=== PATIENT | female | born 2000 | race Caucasian/White ===

== ENCOUNTER 2021-11-29 18:52 | Emergency (ER) | payer SELFPAY ==
[2021-11-29 19:30] VITALS: BP 121/87; PULSE 81; RESP 19; TEMP 37.1; O2SAT 98; BMI 23.8
--- NOTE | 2021-11-29 20:00 | HMH.EDUTC ---
[facility] [place] Clinical Impression: Encounter for laboratory testing for COVID-19 virus Disposition: Home, Self-Care Condition on Discharge: Good Instructions: DI for COVID-19 (Suspected or Confirmed ), Preventing the Spread of Coronavirus Discharge Instructions Additional Instructions: Calculating Isolation Day 0 is your first day of symptoms or a positive viral test. Day 1 is the first full day after your symptoms developed or your test specimen was collected. If you have COVID-19 or have symptoms, isolate for at least 5 days. IF YOU Tested positive for COVID-19 or have symptoms, regardless of vaccination status Stay home for at least 5 days Stay home for 5 days and isolate from others in your home. Wear a well-fitting mask if you must be around others in your home. Do not travel. Ending isolation if you had symptoms End isolation after 5 full days if you are fever-free for 24 hours (without the use of fever-reducing medication) and your symptoms are improving. Ending isolation if you did NOT have symptoms End isolation after at least 5 full days after your positive test. If you got very sick from COVID-19 or have a weakened immune system You should isolate for at least 10 days. Consult your doctor before ending isolation. Take precautions until day 10 Wear a well-fitting mask Wear a well-fitting mask for 10 full days any time you are around others inside your home or in public. Do not go to places where you are unable to wear a mask. Do not travel Do not travel until a full 10 days after your symptoms started or the date your positive test was taken if you had no symptoms. Avoid being around people who are more likely to get very sick from COVID-19. You were tested for today for COVID19 your test result should be back in the next 24-48 hours, your results should be available on the [facility] portal for viewing CDC recommends Quarantine for Make sure to take your Vitamins Vit. C Vit D and Zinc if you can take them Referrals: Provider,Referral, [Primary Care Provider] - As needed Forms: Work/School Release Time of Disposition: 20:03 Medical Decision Making - Brian Inquiry Pt receiving controlled substance: No Brian was queried for this patient: No Vital Signs: 11/29/21 19:30 Temperature 98.7 F Temperature Source Oral Pulse Rate [Right Brachial] 81 Respiratory Rate 19 Blood Pressure [Right Arm] 121/87 Blood Pressure Mean [Right Arm] 98 Blood Pressure Source [Right Arm] Automatic Cuff Blood Pressure Position [Right Arm] Sitting 02 Sat by Pulse Oximetry 98 Oxygen Delivery Method Room Air Orders (Tests/Meds): ORDERS Category Date Time Status Covid-19 Nasal PCR ([facility]) Routine Lab 11/29/21 19:37 [place] [facility] [place] - General Stated complaint: covid test Time Seen by Provider: 11/29/21 20:00 Mode of Arrival: Ambulatory Source of Information: Patient Limitations: No Limitations Description of Symptoms (Recalled from Triage Doc. by RN): PATIENT C/O BODY ACHES AND NO TASTE/SMELL X 1 WEEK HEENT Symptoms (Recalled from RN notes): No Resp Symptoms (Recalled from RN notes): No Skin Symptoms (Recalled from RN notes): No MS Symptoms (Recalled from RN notes): No Functional Status (Recalled from RN notes): WNL - History of Present Illness Provider Complaint: Patient states she was around her last week and she was having flu like symptoms and loss her taste and smell concerned that she may have COVID and wanted to get tested - Related Data Allergies Allergy/AdvReac Type Severity Reaction Status Date / Time No Known Allergies Allergy Verified 11/29/21 19:47 - Worker's Comp Is this a Worker's Comp case?: No [facility] History - Hepatitis A Screen Attestation statement:: This patient has been screened for Hepatitis A risk factors. I have reviewed the patient's past medical history: Yes ROS Obtained: Yes All systems reviewed & no additional complaints, Yes Systems reviewed as appropria
[2021-11-29 20:04] VITALS: BP 121/87; PULSE 81; RESP 19; TEMP 37.1; O2SAT 98
== END 2021-11-29 20:09 | disposition home or self-care (01) ==
PROVIDERS: Emergency Provider Nurse Practitioner
DX: U07.1 COVID-19 (principal)
CPT/HCPCS: 99211; C9803; G0463; U0003; U0005

== ENCOUNTER 2023-02-14 13:34 | Emergency (ER) | payer SELFPAY ==
[2023-02-14 13:40] VITALS: BP 179/89; PULSE 114; RESP 20; TEMP 37.1; O2SAT 97; BMI 27.3
--- NOTE | 2023-02-14 13:51 | HMH.EDGENADL ---
Discharge Plan Disposition Patient Disposition: Home, Self-Care Prescriptions Prescriptions: New amoxicillin-pot clavulanate 875-125 mg tablet 1 tab PO BID 10 Days Qty: 20 0RF Referrals Follow up/Referrals: Provider,Referral, [Primary Care Provider] - See instructions Activity Restrictions/Add. Instructions Additional Instructions/Restrictions: Please follow-up with the message earliest convenience you may go to [facility] for student walk-in clinic or urgent care clinic. You may call [phone] for further information you may also follow-up with a dentist at . Return with significant worsening of your facial swelling fevers or other concerns Clinical Impressions Clinical Impression: Infected dental caries, Facial cellulitis Discharge ED Provider: Rick Smith General Adult HPI General Chief complaint: Dental/Oral Stated complaint: jaw swelling, sore throat Time Seen by Provider: 02/14/23 13:41 Mode of Arrival: Ambulatory Source of Information: Patient Limitations: No Limitations Description of Symptoms (Recalled from ER Triage Doc. by RN): pt to ed c/o right sided jaw sewlling and sore throat. pt states she believes she has an infected wisdom tooth. History of Present Illness HPI narrative: Patient is a 23-year-old female here with concerns of dental caries on the right mandibular molar region and facial swelling over the last few days. She states that she is known about this problem regarding her dental caries and her wisdom teeth in the past needing to be extracted but she is try to follow-up with dentist and they have been cost prohibitive. She states that it has significantly worsened over the last few days however she does not have any difficulty with opening her mouth tolerating secretions fevers or any other concerns. She has no antibiotic allergies or other medical problems. Related Data Previous Rx's Medication Instructions Recorded amoxicillin 875 mg-potassium 1 tab PO BID 10 days #20 tabs 02/14/23 clavulanate 125 mg tablet Allergies Allergy/AdvReac Type Severity Reaction Status Date / Time No Known Allergies Allergy Verified 11/29/21 19:47 [facility] Disclaimer: The information contained in this section may have been updated after the patient was seen, as this information can be updated by other users. Social History Smoking Status: Never smoker alcohol intake: never current occupational status: other Travel in the last 8 weeks: None ROS Obtained: Yes All systems reviewed & no additional complaints except as documented Physical Exam General General appearance: alert ENT ENT exam: Present other (Necrotic dental caries in the right mandibular molar with surrounding erythema of the gingiva no obvious abscess there is significant facial swelling in the angle of the mandible without any fluctuance no trismus) Respiratory Respiratory exam: Present normal lung sounds bilaterally; Absent respiratory distress Cardiovascular Cardiovascular exam: Present regular rate; Absent tachycardia Neurological Exam Neurological exam: Present alert and oriented X3 Medical Decision Making Brian Inquiry Pt receiving controlled substance: No Vital Signs: 02/14/23 13:40 Temperature 98.7 F Temperature Source Oral Pulse Rate [Right Radial] 114 H Respiratory Rate 20 Blood Pressure [Right Arm] 179/89 H Blood Pressure Mean [Right Arm] 119 02 Sat by Pulse Oximetry 97 Oxygen Delivery Method Room Air Orders (Tests/Meds): ED MEDICATIONS Generic Name Dose Route Start Last Admin Trade Name Freq PRN Reason Stop Dose Admin Amoxicillin/Clavulanate Potassium 2 each 02/14/23 13:46 Amoxicillin/Pot Clavulan 500mg Tablet PO 02/14/23 13:47 ONCE ONE Medical Decision Narrative: 23-year-old female with facial cellulitis that is mild secondary to odontogenic infection. She has chronic dental caries that are clearly infected that will eventually need to be
[2023-02-14 13:56] VITALS: BP 168/87; PULSE 102; RESP 20; TEMP 37.1; O2SAT 97
== END 2023-02-14 13:57 | disposition home or self-care (01) ==
PROVIDERS: Emergency Provider Student in an Organized Health Care Education/Training Program
DX: L03.211 Cellulitis of face (principal); J02.9 Acute pharyngitis, unspecified
CPT/HCPCS: 99283

== ENCOUNTER 2024-08-01 17:26 | Emergency (ER) | payer BC, SELFPAY ==
[2024-08-01 17:55] VITALS: BP 142/89; PULSE 89; RESP 19; TEMP 36.8; O2SAT 100; BMI 30.2
--- NOTE | 2024-08-01 18:06 | ED_ITS ---
Discharge Plan Disposition Patient Disposition: Home, Self-Care Condition: Good Prescriptions Prescriptions: New ferrous sulfate 325 mg (65 mg iron) tablet 325 mg PO DAILY 30 Days Qty: 30 5RF Referrals Follow up/Referrals: Provider,Referral, MD [Primary Care Provider] - See instructions Activity Restrictions/Add. Instructions Additional Instructions/Restrictions: Drink plenty of fluids. Take the iron (ferrous sulfate) as directed. If you have trouble with constipation while taking iron I recommend for you to take a stool softener [colace (docusate sodium)] with it. Follow up with your regular doctor. We are giving you a list of primary care physicians that are taking new patients. Please call one in the morning to get a follow up there with in the next 1 week to 10 days to have your blood counts rechecked and further treatment. GO TO THE ER FOR ANY WORSENING SYMPTOMS Clinical Impressions Clinical Impression: Anemia Instructions Patient Instructions: Iron, Anemia Print Language Print Language: Maltese Discharge ED Provider: Wilman Kaufman [facility] General Stated complaint: lightheaded,fast heart rate Mode of Arrival: Ambulatory Source of Information: Patient Limitations: No Limitations Time Seen by Provider: 08/01/24 18:06 Description of Symptoms (Recalled from Triage Doc. by RN): PATIENT C/O FEELING LIGHT-HEADED ON AND OFF OVER THE PAST FEW YEARS HEENT Symptoms (Recalled from RN notes): Yes Resp Symptoms (Recalled from RN notes): No Skin Symptoms (Recalled from RN notes): No MS Symptoms (Recalled from RN notes): No Functional Status (Recalled from RN notes): WNL History of Present Illness Provider Complaint: She states that for the few years she has had periods of time when she has felt light headed. She has had these symptoms frequently over the past 1 month or so. She has not had medical insurance until the past few weeks, so she came in today to be checked. She states that her light headedness is most severe when she first stands up. She denies any chest pain, shortness of breath and any other symptoms. In the past she had issues with anemia related to having heavy periods. She states that she still has very heavy periods. Related Data Previous Rx's ?Medication ?Instructions ?Recorded ferrous sulfate 325 mg (65 mg 325 mg PO DAILY 30 days #30 tabs 08/01/24 iron) tablet Allergies Allergy/AdvReac Type Severity Reaction Status Date / Time No Known Allergies Allergy Verified 11/29/21 19:47 Worker's Comp Is this a Worker's Comp case?: No [facility] Disclaimer: The information contained in this section may have been updated after the patient was seen, as this information can be updated by other users. Medical History (Updated 08/01/24 @ 19:19 by Wilman Kaufman APRN) History of anemia Social History (Updated 02/14/23 @ 13:54 by Rick Smith MD) Smoking Status: Never smoker alcohol intake: never current occupational status: other Travel in the last 8 weeks: None Have you lived/traveled outside [place] in past 30 days?: No Contact w/someone who lives/traveled outside [place] past 30 days?: No Exposure to someone with infectious disease in past 14 days?: No Do you have a fever (greater than 100.4 F or 38 C)?: No Have you tested positive for COVID-19: No Exposed to someone with COVID-19 in past 14 days?: No Do you have a sore throat?: No Do you have a cough?: No Do you have any weakness?: Yes Do you have any diarrhea?: No Are you experiencing any unusual bleeding?: No Do you have any muscle aches/pain?: No Do you have any abdominal pain?: No Are you experiencing loss of taste or smell?: No ROS Obtained: Yes All systems reviewed & no additional complaints except as documented Constitutional Constitutional: Denies chills and Denies fever(s) Eyes Eyes: Denies eye discharge ENT Ears, Nose, Mouth, and Throat: Denies dizziness, Denies otalgia and Denies sore throat Cardiovascular Cardiovascular: Denies chest pain Respiratory Respiratory: Denies shortness of breath, Denies chest congestion, Denies cough, Denies stridor and Denies wheezing Gastrointestinal Gastrointestingal: Denies nausea or vomiting Musculoskeletal Musculoskeletal: Reports system reviewed and no additional complaints, except as documented and Denies arthralgias Integumentary/Breasts Skin/Breast: Denies rash Neurologic Neurologic: Denies dizziness and Denies paresthesias Allergic/Immunologic Allergic/Immunologic: Denies wheezing Physical Exam General General appearance: alert and in no apparent distress Head Head exam: atraumatic, normocephalic and normal inspection Eye Eye exam: Present normal appearance, PERRL and EOMI ENT ENT exam: Present normal exam, normal oropharynx, mucous membranes moist, TM's normal bilaterally and normal external ear exam Neck Neck exam: Present normal inspection, full ROM and trachea midline; Absent meningismus or lymphadenopathy Chest Chest inspection: Present normal inspection and symmetric chest wall rise; Absent tenderness Respiratory Respiratory exam: Present normal lung sounds bilaterally; Absent respiratory distress Cardiovascular Cardiovascular exam: Present regular rate and normal rhythm; Absent JVD Abdominal Exam Abdominal exam: Present soft and normal bowel sounds; Absent distention, tenderness or guarding Extremities Exam Extremities exam: Present normal inspection, full ROM and normal capillary refill; Absent calf tenderness Back Exam Back exam: Present normal inspection; Absent tenderness Neurological Exam Neurological exam: Present alert and oriented X3 Psychiatric Psychiatric exam: Present normal affect and normal mood Skin Skin exam: Present warm, dry, intact and normal color Lymphatic Lymphatic Findings: no adenopathy Medical Decision Making Medical Records Medical records reviewed: No I reviewed the patient's medical records. Screening: Per USPSTF and CDC recommendations, given the prevalence of disease in our region, it is our hospital?s policy to screen for HIV and viral Hepatitis for all patients aged 18 and over and those with ongoing risk factors. Brian Inquiry Pt receiving controlled substance: No Vital Signs: 08/01/24 17:55 Temperature 98.2 F Temperature Source Oral Pulse Rate [Left Brachial] 89 Respiratory Rate 19 Blood Pressure [Left Arm] 142/89 H Blood Pressure Mean [Left Arm] 106 Blood Pressure Source [Left Arm] Automatic Cuff Blood Pressure Position [Left Arm] Sitting 02 Sat by Pulse Oximetry 100 Oxygen Delivery Method Room Air Lab Data 08/01/24 18:40 08/01/24 18:40 Medical Decision Narrative: She refused transfer to the er for further evaluation at this time.
--- NOTE | 2024-08-01 18:43 | ECG_ITS ---
APPROVED REPORT Exam: Resting ECG HR:74 bpm ECG Measurements Heart Rate 74 AXES AZ 132 P 31 QRSd 93 QRS 65 QT 346 T 59 QTc 374 Conclusion SINUS RHYTHM POSSIBLE RIGHT VENTRICULAR CONDUCTION DELAY [RSR (QR) IN V1/V2] BORDERLINE ECG Electronically signed by : DENISE MEDRANO, 08/03/2024 15:41:54
[2024-08-01 18:56] LABS: Basophils # 0.1 K/mm3 (0-0.2); Basophils % 1.1 % (0.1-2.0); Eosinophils # 0.1 K/mm3 (0.0-0.4); Eosinophils % 1.5 % (0.1-12.0); Hemoglobin 7.7 g/dL (12.2-16.2); Lymphocytes # 2.4 K/mm3 (0.7-4.5); Mean Corpuscular HGB Conc 28.5 g/dL (31.8-35.4); Mean Corpuscular Hemoglobin 20.4 pg (27.0-31.2); Mean Corpuscular Volume 71.4 fl (81-99); Mean Platelet Volume 9.6 fl (7.4-10.4); Monocytes # 0.6 K/mm3 (0.1-1.0); Monocytes % 6.1 % (1.7-9.3); Neutrophils # 6.1 K/mm3 (1.8-7.8); Neutrophils % 65.1 % (37.0-80.0); Platelet Count 418 K/mm3 (142-424); Red Blood Count 3.78 M/mm3 (4.20-5.40); Red Cell Distribution Width 17.2 % (11.5-17.5); White Blood Count 9.4 K/mm3 (4.8-10.8)
[2024-08-01 19:15] LABS: Chloride 105 mmol/L (98-107); Sodium 139 mmol/L (136-145)
[2024-08-01 19:16] LABS: Potassium 4.2 mmoL/L (3.5-5.1)
[2024-08-01 19:18] LABS: Blood Urea Nitrogen 13 mg/dl (7-17)
[2024-08-01 19:19] LABS: Anion Gap 14.2 mEq/L (5-15); Calcium 8.9 mg/dl (8.4-10.2); Carbon Dioxide 24 mmol/L (22.0-30.0); Creatinine Clearance Estimated 150 mL/min (50-200); Estimated Glomerular Filt Rate 102 ml/min (>60); GFR (African American) 123 ML/MIN (>60); Glucose 92 mg/dl (74-100)
[2024-08-01 19:30] VITALS: BP 142/89; PULSE 89; RESP 19; TEMP 36.8; O2SAT 100
== END 2024-08-01 19:31 | disposition home or self-care (01) ==
PROVIDERS: Emergency Provider Nurse Practitioner Family
DX: D64.9 Anemia, unspecified (principal); R42 Dizziness and giddiness
CPT/HCPCS: 80048; 85025; 93005; 99213; G0381